=== PATIENT | female | born 1980 | race Hispanic/Latino ===

== ENCOUNTER 2022-06-15 19:07 | Emergency (ER) | payer BC ==
[2022-06-15] MEDS ORDERED: Ketorolac Tromethamine 30 MG/ML VIAL ONE (19:41)
== END 2022-06-15 20:32 | disposition home or self-care (01) ==
LOC: CSHERS 19:07
DX: J02.9 Acute pharyngitis, unspecified (principal); E11.9 Type 2 diabetes mellitus without complications; I10 Essential (primary) hypertension
CPT/HCPCS: 87081; 87430; 96372; 99283; J1885